=== PATIENT | male | born 1975 | race Caucasian/White ===

== ENCOUNTER 2017-12-07 01:52 | Day surgery (SDC) | payer OTHER ==
[~2017-12-07] VITALS: Ht 181.6 cm; Wt 95.7 kg
[~2017-12-07 01:52] MED LIST: HYDR-4225 PO
[2017-12-07 12:06] VITALS: BP 130/82
[2017-12-07] MEDS ORDERED: LIDOCAINE/SOD BICARB 8.4% SYR ID ONE (12:40)
[2017-12-07] MEDS ORDERED: NORMOSOL R SOLN(*) 1000 ML BAG 1,000 ML IV PRN (12:40)
[2017-12-07 13:57] VITALS: BP 99/78
[2017-12-07 14:32] VITALS: BP 116/88
[2017-12-07 14:34] VITALS: BP 116/87
== END 2017-12-07 14:40 | disposition home or self-care (01) ==
LOC: OR 01:52
PROVIDERS: ATTEND Family Medicine
DX: Z12.11 Encounter for screening for malignant neoplasm of colon (principal)